=== PATIENT | male | born 1985 | race Hispanic/Latino ===

== ENCOUNTER 2021-06-01 11:26 | Emergency (ER) | payer OTHER ==
[2021-06-01] MEDS ORDERED: Boostrix 0.5 ML (Tdap) VIAL ONE (11:42)
[2021-06-01] MEDS ORDERED: Lidocaine 1% w/Epinephrine 1:100K 20 ML VIAL ONE (11:44)
[2021-06-01] MEDS ORDERED: Bacitracin 1 PK ONE (12:04)
== END 2021-06-01 12:20 | disposition home or self-care (01) ==
LOC: MADERS 11:26
DX: S01.81XA Laceration without foreign body of other part of head, initial encounter (principal); G47.30 Sleep apnea, unspecified; Z87.19 Personal history of other diseases of the digestive system; W55.12XA Struck by horse, initial encounter
CPT/HCPCS: 12013; 90471; 90715